=== PATIENT | female | born 1995 | race Two or more races ===

== ENCOUNTER 2019-07-10 04:23 | Inpatient (IN) | payer MEDICAID, OTHER ==
[~2019-07-10] VITALS: Ht 162.6 cm; Wt 80.3 kg
[2019-07-10 07:40] LABS: Basophils # (auto) 0 uL; Eosinophils # (auto) 0 uL; Lymphocytes # (auto) 0.6 uL; Lymphocytes % (auto) 5.2 % (10.0-50.0)
[2019-07-10 07:42] LABS: Basophils % (auto) 0.3 % (0.0-2.0); Hematocrit 40.1 % (36.0-46.0); Hemoglobin 13.9 g/dL (12.2-16.2); Mean Corpuscular Hemoglobin 31.6 pg (28.0-32.0); Mean Corpuscular Hgb Conc. 34.7 g/dL (32.0-36.0); Mean Corpuscular Volume 91.1 fL (80.0-100.0); Monocytes % (auto) 8.4 % (0.0-12.0); Neutrophils # (auto) 10.5 uL; Neutrophils % (auto) 86.1 % (37.0-80.0); Nucleated Red Blood Cells % 0.2 %; Platelet Count (auto) 39 10^3/uL (140-450); Red Cell Distribution Width 13.4 % (11.8-14.3); White Blood Cell 12.2 10^3/uL (4.4-10.8)
[2019-07-10 08:02] LABS: Albumin 2.5 g/dL (3.4-5.0); BUN/Creatinine Ratio 22.1; Bilirubin, Total 3.3 mg/dL (0.2-1.0); Calcium 8.3 mg/dL (8.5-10.1); Potassium 4.4 mmol/L (3.5-5.1); Total Protein 6.7 g/dL (6.4-8.2)
[2019-07-10 10:00] LABS: Urine Amorphous Crystal MANY /hpf (None Seen); Urine Bacteria MOD /hpf (None Seen); Urine Blood 3+ /uL (Negative); Urine Mucus MANY (None Seen); Urine Specific Gravity 1.028 (1.001-1.035); Urine WBC 495 /hpf (0 - 5)
[2019-07-10] MEDS ORDERED: cefTRIAXone 1GM/50ML D5W 50 ML IV ONE (11:45)
[2019-07-10] MEDS ORDERED: NITROGLYCERIN 0.4 MG SL TAB SL PRN (13:00)
[2019-07-10] MEDS ORDERED: ACETAMINOPHEN 500 MG TAB PO PRN (13:00)
[2019-07-10] MEDS ORDERED: MORPHINE SULF INJ 2 MG/ML SYRINGE 1ML IV PRN (13:00)
[2019-07-10] MEDS ORDERED: SODIUM CHLORIDE 0.9% 1,000 ML IV SCH (13:00)
[2019-07-10 13:30] VITALS: BP 147/98
[2019-07-10] MEDS ORDERED: metroNIDAZOLE 500MG/100ML 100 ML IV SCH (14:00)
[2019-07-10] MEDS ORDERED: MEPERIDINE HCL (50 MG/ML) 1 ML VIAL IM PRN (14:30)
[2019-07-10] MEDS ORDERED: MAGNESIUM SULFATE 40MG/ML 1,000 ML IV SCH (15:23)
[2019-07-10] MEDS ORDERED: LACTATED RINGER'S 1,000 ML IV SCH (15:23)
[2019-07-10 15:29] LABS: INR 0.95 (0.9-1.15); Partial Thromboplastin Time 28.1 sec (23.64-32.05)
[2019-07-10] MEDS ORDERED: MAGNESIUM SULFATE 100 ML IV ONE ×2 (15:30→15:42)
[2019-07-10] MEDS ORDERED: MAGNESIUM SULFATE 40MG/ML 1,000 ML IV ONE (16:17)
[2019-07-10] MEDS ORDERED: ceFAZolin 1GM/50ML 50 ML IV ONE ×2 (16:28→16:30)
[2019-07-10] MEDS ORDERED: BETAMETHASONE ACET (6MG/ML) 5ML VIAL ONE (16:28)
[2019-07-10] MEDS ORDERED: BETAMETHASONE ACET (6MG/ML) 5ML VIAL IM ONE (16:30)
[2019-07-10] MEDS ORDERED: hydrALAZINE HCL 20 MG/ML VL IV PRN (17:30)
[2019-07-10 17:57] LABS: Basophils # (auto) 0 uL; Eosinophils # (auto) 0 uL; Hematocrit 37.1 % (36.0-46.0); Hemoglobin 12.8 g/dL (12.2-16.2); Mean Corpuscular Hgb Conc. 34.6 g/dL (32.0-36.0); Monocytes # (auto) 0.8 uL; Monocytes % (auto) 7.3 % (0.0-12.0)
[2019-07-10 17:59] LABS: Basophils % (auto) 0.4 % (0.0-2.0); Lymphocytes # (auto) 1.7 uL; Lymphocytes % (auto) 14.8 % (10.0-50.0); Mean Corpuscular Volume 89.7 fL (80.0-100.0); Neutrophils % (auto) 77.5 % (37.0-80.0); Nucleated Red Blood Cells % 0.3 %; Platelet Count (auto) 42 10^3/uL (140-450); Red Blood Cells 4.14 10^6/uL (4.0-5.20); Red Cell Distribution Width 13.5 % (11.8-14.3); White Blood Cell 11.6 10^3/uL (4.4-10.8)
[2019-07-10 18:32] LABS: Albumin 2.3 g/dL (3.4-5.0); BUN/Creatinine Ratio 22.6; Bilirubin, Total 2.4 mg/dL (0.2-1.0); Potassium 3.6 mmol/L (3.5-5.1)
[2019-07-11] MEDS ORDERED: cefTRIAXone 1GM/50ML D5W 50 ML IV SCH (09:00)
[2019-07-11] MEDS ORDERED: PRENATAL VITAMIN TAB PO SCH (10:00)
== END 2019-07-10 19:05 | disposition short-term general hospital (02) | DRG 566 ==
LOC: ER 04:28 → LDRP 13:52
PROVIDERS: ADMIT Specialist; ATTEND Specialist
DX: O99.613 Diseases of the digestive system complicating pregnancy, third trimester (principal); K80.00 Calculus of gallbladder with acute cholecystitis without obstruction; O26.613 Liver and biliary tract disorders in pregnancy, third trimester; O14.23 HELLP syndrome (HELLP), third trimester; O24.419 Gestational diabetes mellitus in pregnancy, unspecified control; O23.43 Unspecified infection of urinary tract in pregnancy, third trimester; Z3A.30 30 weeks gestation of pregnancy
CPT/HCPCS: 36415; 51702; 59025; 76705; 76805; 80053; 81001; 81002; 82150; 82248; 82962; 83690; 83735; 84550; 84702; 85025; 85362; 85379; 85610; 85730; 86850; 86900; 86901; 94760; 96365; 96372; 96374; G0378; J0690; J0696

== ENCOUNTER 2020-03-28 08:03 | Observation (INO) | payer MEDICAID | END 2020-03-28 10:30 | disposition home or self-care (01) | DRG 566 | LOC: LDRP 08:03 | PROVIDERS: ADMIT Obstetrics & Gynecology; ATTEND Obstetrics & Gynecology | DX: O24.419 Gestational diabetes mellitus in pregnancy, unspecified control (principal); O60.03 Preterm labor without delivery, third trimester; Z3A.31 31 weeks gestation of pregnancy | CPT/HCPCS: 59025; 76818; 81002; 82948; 82962; G0378 ==